=== PATIENT | male | born 1995 | race African-American/Black ===

== ENCOUNTER 2022-08-01 13:58 | Emergency (ER) | payer MEDICAID ==
[~2022-08-01] VITALS: Ht 175.3 cm; Wt 109.0 kg
[2022-08-01] MEDS ORDERED: LIDO30CR46 TP (17:29)
[2022-08-01 17:41] VITALS: BP 122/75
== END 2022-08-01 17:47 | disposition home or self-care (01) ==
LOC: ER 13:58
DX: K60.2 Anal fissure, unspecified (principal)
CPT/HCPCS: 99281